=== PATIENT | female | born 2000 | race Two or more races ===

== ENCOUNTER 2024-01-25 04:21 | Inpatient (IN) | payer OTHER ==
[~2024-01-25] VITALS: Ht 170.2 cm; Wt 2.7 kg
[2024-01-25] MEDS ORDERED: AMPICILLIN SODIUM 2,000 MG VIAL ONE (04:38)
[2024-01-25] MEDS ORDERED: AMPICILLIN SODIUM 2,000 MG VIAL IV STA (04:43)
[2024-01-25] MEDS ORDERED: OXYTOCIN 10 UNITS/ML VIAL ONE (07:13)
[2024-01-25] MEDS ORDERED: ERYTHROMYCIN BASE 3.5 GM OINT...G. OP ONE (07:14)
[2024-01-25] MEDS ORDERED: ERYTHROMYCIN BASE 1 GM TUBE OP ONE (08:00)
[2024-01-25] MEDS ORDERED: OXYTOCIN 10 UNITS/ML VIAL IV ONE (08:00)
[2024-01-25] MEDS ORDERED: CARBOPROST TROMETHAMINE 250 MCG/ML AMPUL IM ONE ×2 (08:25→08:45)
[2024-01-25] MEDS ORDERED: MEPERIDINE HCL/PF 50 MG/ML VIAL IM SCH (09:30)
[2024-01-25] MEDS ORDERED: CEFAZOLIN SODIUM 1,000 MG VIAL IV STA (09:33)
[2024-01-25] MEDS ORDERED: PROMETHAZINE HCL 25 MG/ML AMPUL IV SCH (12:00)
[2024-01-25] MEDS ORDERED: CEFAZOLIN SODIUM 1,000 MG VIAL IV SCH (12:00)
[2024-01-25] MEDS ORDERED: CEFAZOLIN SODIUM 1,000 MG VIAL ONE (13:23)
[2024-01-25] MEDS ORDERED: PROMETHAZINE HCL 25 MG/ML AMPUL ONE (13:25)
[2024-01-25] MEDS ORDERED: FF) RHO(D) IMMUNE GLOBULIN (POM) IM ONE (15:45)
[2024-01-26 07:52] LABS: HEMATOCRIT 30.5 % (36.0-45.00); HEMOGLOBIN 10.6 g/dL (12.0-15.00); MEAN CELL VOLUME 84.1 fL (80.00-100.00); MEAN CORPUSCULAR HEMOGLOBIN 29.3 pg (27.00-32.0); MEAN CORPUSCULAR HGB CONC 34.8 g/dl (32.0-36.0); PLATELET COUNT 160 K/uL (150-450); RED BLOOD COUNT 3.63 M/uL (4.00-6.00); RED CELL DISTRIBUTION WIDTH 14.6 % (11.5-14.5)
[2024-01-26] MEDS ORDERED: OxyCODONE HCL/APAP UD (PERCOCET) PO PRN (08:45)
[2024-01-27] MEDS ORDERED: FF) RHO(D) IMMUNE GLOBULIN (POM) IM STA (12:49)
== END 2024-01-27 14:23 | disposition home or self-care (01) | DRG 788 ==
LOC: OB/GYN 04:21 → LDR 04:21 → OB/GYN 13:58
PROVIDERS: ADMIT Specialist; ATTEND Specialist
PROC: 4A1HXCZ Monitoring of Products of Conception, Cardiac Rate, External Approach (ICD-10-PCS; 2024-01-25)
PROC: 10D00Z1 Extraction of Products of Conception, Low, Open Approach (ICD-10-PCS; principal; 2024-01-25 10:30)
DX: O69.0XX0 Labor and delivery complicated by prolapse of cord, not applicable or unspecified (principal); O99.824 Streptococcus B carrier state complicating childbirth; O69.81X0 Labor and delivery complicated by cord around neck, without compression, not applicable or unspecified; Z3A.37 37 weeks gestation of pregnancy; Z37.0 Single live birth; Z20.822 Contact with and (suspected) exposure to COVID-19